=== PATIENT | female | born 1985 | race Caucasian/White ===

== ENCOUNTER 2017-05-13 16:15 | Inpatient (IN) | payer BC ==
[2017-05-13] MEDS ORDERED: OXYTOCIN/RINGERS LACTATE 1,000 ML IV PRN (16:36)
[2017-05-13] MEDS ORDERED: EPSOM SALT 454 GM TP PRN (16:36)
[2017-05-13] MEDS ORDERED: TERBUTALINE SULFATE 1 MG/ML VIAL IV PRN (16:36)
[2017-05-13] MEDS ORDERED: OLIVE OIL 118 ML BTL MISC PRN (16:36)
[2017-05-13] MEDS ORDERED: LR 1,000 ML IV PRN (16:36)
[2017-05-13] MEDS ORDERED: LR 500 ML IV PRN (17:29)
[2017-05-13] MEDS ORDERED: ZOLPIDEM TARTRATE 5 MG TAB PO ONE (17:29)
[2017-05-13] MEDS ORDERED: OXYTOCIN/RINGERS LACTATE 500 ML IV SCH (17:30)
--- NOTE | 2017-05-13 17:33 | GHP ---
[f rep st] HISTORY AND PHYSICAL DATE OF ADMISSION: 05/13/2017 ADMITTING DIAGNOSES: 1. Intrauterine at 38 weeks and 4 days. 2. Oligohydramnios. HISTORY OF PRESENT ILLNESS: Patient is a 32-year-old, 2, para 1-0-0-1 at 38 and 4 weeks with estimated due date 05/23/2017 by last menstrual period of 08/16/2016 and confirmed by first trimester ultrasound. The patient presents for routine visit today as well as ultrasound for BRIDGETTE. She is doing well with no complaints. No leakage of fluid or vaginal bleeding noted. Good movement noted. Denies contractions or Campbell Khalil. We reviewed ultrasound showing IUGR with an estimated weight of 9th percentile, previously was 13th percentile 04/10; BRIDGETTE is low at 4 cm with maximum vertical pocket of 1.8 cm. Discussed with patient that with IUGR and oligohydramnios at term, we recommend delivery. On exam she is fingertip, 25% effaced, -2 station. Discussed placing a Freeman bulb with gentle traction, keeping her overnight and starting Pitocin in the morning. The patient transferred care to us at [facility] at 35 weeks. She moved here from [place] and had good care and presented in her first trimester. complicated by low lying placenta that resolved on third trimester ultrasound. On initially visit, ultrasound was done showing SGA with an estimated weight in 13th percentile and BRIDGETTE was at 6.4 cm. Umbilical artery Dopplers were normal at that time. Patient was given instructions on hydrotherapy, and to increase fluids and we would check weekly AFIs. She did receive both flu and Tdap during the . GBS culture is negative. PAST OBSTETRIC HISTORY: In 2014, she had a spontaneous vaginal delivery, viable male at 40 weeks, weighing 8 pounds 3 ounces. No complications. 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 Cycles are every 28 days x7 days. Last menstrual period is 08/16/2017 and she had a positive test mid August. Patient denies any abnormal Pap smears or any exposure to sexually transmitted diseases. The patient did have a negative Pap smear in February 2016 and GC and chlamydia cultures were negative in October of 2016. PAST MEDICAL HISTORY: Unremarkable. PAST SURGICAL HISTORY: In 2007, she had a left ACL repair. MEDICATIONS: Include Zyrtec as needed, fghy-abp-[id number] vitamins with DHEA, Singulair, Sudafed and iron. ALLERGIES: No known drug allergies. SOCIAL HISTORY: Patient is . She is a house . Lives with her and their son. Denies alcohol, tobacco or illicit drug use. FAMILY HISTORY: Noncontributory. LABS: Patient is A positive. Antibody negative. RPR nonreactive. Rubella immune. Hepatitis B surface antigen negative. HIV negative. She declined a Trio screen but was negative for cystic fibrosis in 2013. Varicella immune. Urine culture negative. Pap, gonorrhea and chlamydia cultures negative. Declined all genetic testing. Hematocrit 30.8. One-hour Glucola 88. GBS is negative. REVIEW OF SYSTEMS: 10-point review of systems is negative and positives pertinent noted in HPI. PHYSICAL EXAM: VITAL SIGNS: Stable. Vital signs are stable. The patient is afebrile. GENERAL: Well-nourished, well-developed female. Alert and oriented x3. No apparent distress. CARDIOVASCULAR: Regular rate and rhythm without murmur. LUNGS: Clear to auscultation bilaterally. ABDOMEN: Gravid, soft, nondistended, nontender. PELVIC: She was found to be fingertip, 25% effaced, - 2 station. EXTREMITIES: Normal to inspection without calf tenderness or edema. ASSESSMENT AND PLAN: Patient is a 32-year-old, 2, para 1-0-0-1 at 38 weeks and 4 days who presents for induction of labor secondary to oligohydramnios. PLAN: 1. Admit to labor and delivery. 2. With unfavorable cervix will place a Freeman balloon tonight and then start Pitocin per protocol at a.m. 3. We will keep overnight secondary to oligohydramnios for monitoring. 4. Desires nitrous for pain control. /[id number]/MODL MTDD
[2017-05-13] MEDS ORDERED: MISOPROSTOL 100 MCG TAB PO ONE (18:45)
[2017-05-13] MEDS ORDERED: LIDOCAINE 1% 300 MG/30 ML SDV ONE (19:56)
[2017-05-13] MEDS ORDERED: OLIVE OIL 118 ML BTL ONE (19:56)
[2017-05-13] MEDS ORDERED: OXYTOCIN 10 UNIT/ML VIAL ONE (19:57)
[2017-05-13] MEDS ORDERED: TERBUTALINE SULFATE 1 MG/ML VIAL ONE (19:57)
[2017-05-13] MEDS ORDERED: AMMONIA AROMATIC 1 EACH AMP IH ONE (19:57)
[2017-05-13] MEDS ORDERED: MISOPROSTOL 200 MCG TAB ONE (19:57)
[2017-05-13 21:25] LABS: % IMMATURE GRANULYOCYTES 1.1 % (0.0-1.1); ABSOLUTE IMMATURE GRANULOCYTES 0.09 10^3/uL (0.00-0.10); ADD DIFF? NO; ADD MORPH? NO; ADD SCAN? NO; ATYPICAL LYMPHOCYTE FLAG 10 (0-99); FRAGMENT RBC FLAG 0 (0-99); HEMATOCRIT 34.1 % (38.0-47.0); HEMOGLOBIN 11.6 g/dL (12.6-16.3); LEFT SHIFT FLG 10 (0-99); LIPEMIA HEMOLYSIS FLAG 90 (0-99); MEAN CELL HEMOGLOBIN 31.4 pg (27.9-34.1); MEAN CELL VOLUME 92.4 fL (81.5-99.8); MEAN PLATELET VOLUME 10.3 fL (8.7-11.7); PLATELET CLUMPS FLAG 0 (0-99); PLATELET COUNT 179 10^3/uL (150-400); RED BLOOD CELL COUNT 3.69 10^6/uL (4.18-5.33); RED CELL DISTRIBUTION WIDTH 12.4 % (11.5-15.2)
[2017-05-13] MEDS: ACETAMINOPHEN 500 MG TAB PO PRN (22:21)
[2017-05-14] MEDS: MISOPROSTOL 100 MCG TAB PO SCH ×3 (01:20→16:39)
--- NOTE | 2017-05-14 15:18 | OBPROG ---
OBG Labor Progress Note Assessment/Plan: Assessment: IUP at 38w5d SROM this am 0615, forebag ruptured induction for oligohydramnios cytotec for inductin last noc, now on Pitocin Plan: Cont Pit, await increase in labor intensity 05/14/17 15:07 Subjective: Doing ok - not intense yet - waiting Objective: 05/13/17 21:00 Patient ABO/Rh A POSITIVE 05/13/17 21:00 - SVE Dilation (cm): 3 Effacement (%): 90 Station: -2 Galvez Current Contraction Pattern: Regular (q 4 min on 10 mu/min pit) FHR (bpm): 130 FHR Pattern Variability: Moderate FHR Category: 1 (earlier occas lates noted - not recently) Membranes: AROM (recent of minimal forebag) Amniotic Fluid Color: Bloody Oxytocin Orders Assessment - Pre-Induction/Augmentation Assessment Gestational Age: 38 week(s) and 4 day(s) ICD10 Worksheet Patient Problems: Problems Problem Status Onset Oligohydramnios Acute - ICD10 Problem Qualifiers (1) Oligohydramnios Qualifiers: Fetus number: F Trimester: T
[2017-05-14] MEDS: IBUPROFEN 600 MG TAB PO PRN ×2 (16:38→22:37)
[2017-05-14] MEDS ORDERED: ACETAMINOPHEN 325 MG TAB PO PRN (17:22)
--- NOTE | 2017-05-14 17:32 | OBDEL ---
Info Type: Vaginal GBS+: No Indications for Delivery: Growth Restriction w/Oligo Vaginal Delivery - Labor and Delivery Onset of Contractions Date: 05/14/17 Onset of Contractions Time: 14:45 Onset of Contractions Type: Induced Rupture of Membranes Date: 05/14/17 Rupture of Membranes Time: 06:15 Rupture of Membranes Type: Spontaneous Amniotic Fluid Color: Clear (later at 1445, AROM of small forebag and bloody fluid noted) Dilation Complete Date: 05/14/17 Dilation Complete Time: 16:00 Placenta Delivery Date: 05/14/17 Placenta Delivery Time: 16:20 Total Hours of Labor: 1 Non-surgical Procedures: Amniotomy (of forebag) Laceration: 1st Degree, Other (Specify) (midline perineal) Repair: Other (Specify) (none needed) Vaginal Sponge Count Correct: Yes Vaginal Needle Count Correct: Yes Vaginal Sweep Performed: No EBL: 300 Delivery Events: Nuchal Cord (x2 loose and reduced) - Medications Labor Augmentation/Induction Methods Used: Misoprostol (cytotec x 3 doses through night, then pitocin), Freeman Bulb (placed on 05/13 but fell out after 1-2 hrs) Labor Augmentation/Induction Indication: IUGR, Other (Specify) (oligohydramnios) [place] Data Galvez Delivery Date: 05/14/17 Delivery Time: 16:14 NAMRATA: 05/23/17 Gestational Age: 38 week(s) and 5 day(s) Sex of Infant: Female Score (1 Min): 8 Score (5 Min): 9 ICD10 Worksheet Patient Problems: Problems Problem Status Onset (spontaneous vaginal delivery) Acute Oligohydramnios Acute IUGR (intrauterine growth restriction) Acute - ICD10 Problem Qualifiers (1) Oligohydramnios Qualifiers: Fetus number: single or unspecified fetus Trimester: third trimester Qualified Code(s): O41.03X0 - Oligohydramnios, third trimester, not applicable or unspecified (2) IUGR (intrauterine growth restriction)
[2017-05-14 20:59] VITALS: O2SAT 97
[2017-05-14] MEDS: ACETAMINOPHEN 500 MG TAB PO PRN (23:06)
[2017-05-15] MEDS: IBUPROFEN 600 MG TAB PO PRN ×2 (05:47→18:14)
[2017-05-15] MEDS: ACETAMINOPHEN 500 MG TAB PO PRN (09:03)
--- NOTE | 2017-05-15 11:05 | OBPP ---
Progress Note Assessment/Plan: Assessment: PPD 1 s/p anemia Plan: routine care, iron BID 05/14/17 15:07 05/15/17 11:02 Subjective: Doing ok. Tired. BF has been going well. Bld is moderate. urinating fine. hydrating well. Objective: 05/15/17 05:52 Patient ABO/Rh A POSITIVE 05/13/17 21:00 Temp Pulse Resp BP Pulse Ox 36.3 C 84 18 111/60 97 05/15/17 10:17 05/15/17 10:17 05/15/17 10:17 05/15/17 10:17 05/14/17 21:30 Uterine Position/Fundal Height: Umbilicus -1 Uterine Tone: Firm Physical Exam - Physical Exam General Appearance: WD/WN Abdomen: non-tender, soft, other (bleeding moderate - no clots) Extremities: non-tender Skin: warm/dry Neuro/Psych: normal mood/affect
[2017-05-15] MEDS: IRON POLYSAC/IRON HEME 28 MG TAB PO SCH ×2 (11:58→20:46)
[2017-05-15] MEDS: MISOPROSTOL 100 MCG TAB PO SCH ×3 (15:07→19:14)
[2017-05-15 19:59] VITALS: BP 105/59; PULSE 65; RESP 17; TEMP 97.5
[2017-05-15] MEDS: DOCUSATE SODIUM 100 MG CAP PO PRN (20:47)
[2017-05-16] MEDS: IBUPROFEN 600 MG TAB PO PRN ×2 (00:05→08:38)
[2017-05-16] MEDS: IRON POLYSAC/IRON HEME 28 MG TAB PO SCH (08:39)
[2017-05-16] MEDS: DOCUSATE SODIUM 100 MG CAP PO PRN (08:41)
--- NOTE | 2017-05-16 11:50 | OBPP ---
Progress Note Assessment/Plan: Assessment: PPD 2 s/p anemia Plan: routine care, iron BID, D/C today 05/14/17 15:07 05/15/17 11:02 05/16/17 11:49 Subjective: Pt doing well. Bld is light. urinating fine. Baby is working on BF. Ready for d/C Objective: 05/15/17 05:52 Patient ABO/Rh A POSITIVE 05/13/17 21:00 Temp Pulse Resp BP Pulse Ox 36.4 C 65 17 105/59 L 97 05/15/17 19:40 05/15/17 19:40 05/15/17 19:40 05/15/17 19:40 05/14/17 21:30 Uterine Position/Fundal Height: Umbilicus -1 Uterine Tone: Firm Physical Exam - Physical Exam General Appearance: WD/WN Abdomen: non-tender, soft Extremities: non-tender, pedal edema (minimal) Skin: warm/dry Neuro/Psych: normal mood/affect
--- NOTE | 2017-05-16 11:57 | OBGCSDC ---
General Delivery Information - General Info : 2 Para: 2 Delivery Physician/CNM: Brittany Villatoro Admission Date: 05/13/17 Labs: Patient ABO/Rh A POSITIVE 05/13/17 21:00 Hct 30.6 % (38.0-47.0) L 05/15/17 05:52 Vaginal - Diagnosis Labor: Induced Presentation at Delivery: Vertex Rupture of Membranes Type: Spontaneous Amniotic Fluid Color: Clear (later at 1445, AROM of small forebag and bloody fluid noted) Laceration: 1st Degree, Other (Specify) (midline perineal) Repair: Other (Specify) (none needed) Delivery Events: Nuchal Cord (x2 loose and reduced) - Operations/Procedures Non-surgical Procedures: Amniotomy (of forebag) L&D Analgesia/Anesthesia Type: Nitrous - Hospital Course Antepartum: moved from [facility] at 35 wks. u/s showing 13 % growth, and borderline fluid. NSTs for reassurance - oligo noted on 05/13 and sent for indxn. Intrapartum: giron placed on 05/13 but fell out after 1-2 hrs, cytotec through noc but little activity, SROM on 05/14 - slow progress until AROM of forebag - then rapid progress. used nitrous : normal course, anemia - on iron - Delivery Non-surgical Procedures: Amniotomy (of forebag) L&D Analgesia/Anesthesia Type: Nitrous Data Galvez Delivery Date: 05/14/17 Delivery Time: 16:14 NAMRATA: 05/23/17 Gestational Age: 39 week(s) and 0 day(s) Sex of : Female [place] Weight (gm): 2880 g Score (1 Min): 8 Score (5 Min): 9 Discharge Information - Discharge Information Discharge Medications: Iron, Ibuprofen, Vitamins Condition: Good Instruction/Follow Up: See Instruction Sheet, Six Weeks (and 4 wks with therapist) Discharge Physician/CNM: Brittany Villatoro
== END 2017-05-16 18:30 | disposition home or self-care (01) | DRG 775 ==
LOC: FLD 16:15 → FOB 05-14 19:00
PROVIDERS: ADMIT Obstetrics & Gynecology; ATTEND Obstetrics & Gynecology
PROC: 10907ZC Drainage of Amniotic Fluid, Therapeutic from Products of Conception, Via Natural or Artificial Opening (ICD-10-PCS; principal; 2017-05-13)
PROC: 10E0XZZ Delivery of Products of Conception, External Approach (ICD-10-PCS; principal; 2017-05-13)
PROC: 3E0P7GC Introduction of Other Therapeutic Substance into Female Reproductive, Via Natural or Artificial Opening (ICD-10-PCS; principal; 2017-05-13)
PROC: 0HQ9XZZ Repair Perineum Skin, External Approach (ICD-10-PCS; principal; 2017-05-13)
PROC: 3E033VJ Introduction of Other Hormone into Peripheral Vein, Percutaneous Approach (ICD-10-PCS; principal; 2017-05-13)
PROC: 0U7C7DZ Dilation of Cervix with Intraluminal Device, Via Natural or Artificial Opening (ICD-10-PCS; principal; 2017-05-13)
DX: O41.03X0 Oligohydramnios, third trimester, not applicable or unspecified (principal); O70.0 First degree perineal laceration during delivery; O69.81X0 Labor and delivery complicated by cord around neck, without compression, not applicable or unspecified; O99.02 Anemia complicating childbirth; Z3A.39 39 weeks gestation of pregnancy; Z37.0 Single live birth
CPT/HCPCS: J2590; J3105

== ENCOUNTER → 2019-01-17 | Outpatient (CLI) | payer BC | LOC: FIMAGING 07:22 | PROVIDERS: ATTEND Advanced Practice Midwife | DX: O09.92 Supervision of high risk pregnancy, unspecified, second trimester (principal); Z14.1 Cystic fibrosis carrier; Z87.59 Personal history of other complications of pregnancy, childbirth and the puerperium; Z3A.20 20 weeks gestation of pregnancy ==